=== PATIENT | male | born 1970 ===

== ENCOUNTER 2021-06-18 02:09 | Emergency (ER) | payer SELFPAY ==
[~2021-06-18] VITALS: Ht 185.4 cm; Wt 99.8 kg
--- NOTE | 2021-06-18 02:25 | NUR ---
Dr. Mccann at bedside for MSE.
[2021-06-18] MEDS ORDERED: ONDANSETRON 4 MG/2 ML VIAL ONE (02:36)
[2021-06-18] MEDS ORDERED: ONDANSETRON 4 MG/2 ML VIAL IM ONE (02:45)
[2021-06-18 02:55] LABS: HEMATOCRIT 40.9 % (36.7-47.1); MEAN CORPUSCULAR HEMOGLOBIN 30.7 uug (23.8-33.4); MEAN CORPUSCULAR VOLUME 90.1 fL (73.0-96.2); PLATELET COUNT (AUTO) 311 K/uL (152-348)
[2021-06-18 02:59] LABS: CREATININE 1.1 mg/dL (0.6-1.3); POTASSIUM 3.1 mmol/L (3.5-5.1)
[2021-06-18 03:05] LABS: BILIRUBIN,DIRECT 0.2 mg/dL (0.0-0.2); BILIRUBIN,TOTAL 0.5 mg/dL (0.2-1.0)
[2021-06-18 03:11] LABS: *AMPHETAMINE, URINE POSITIVE (NEGATIVE); *CANNABINOID, URINE NEGATIVE (NEGATIVE); *COCCAINE, URINE NEGATIVE (NEGATIVE); *OPIATE, URINE NEGATIVE (NEGATIVE); *PHENCYCLIDINE SCREEN,URINE NEGATIVE (NEGATIVE)
[2021-06-18] MEDS: MAGNESIUM SULFATE/D5W 100 ML IV SCH ×2 (05:23→05:45)
[2021-06-18] MEDS: POTASSIUM CHLORIDE 50 ML IV SCH ×3 (05:23→06:24)
[2021-06-18] MEDS ORDERED: LORAZEPAM 2 MG/1 ML VIAL ONE ×2 (05:33→07:09)
[2021-06-18] MEDS ORDERED: LORAZEPAM 2 MG/1 ML VIAL IV ONE ×2 (06:15→07:00)
--- NOTE | 2021-06-18 06:27 | NUR ---
Pt out of ER for CT.
--- NOTE | 2021-06-18 06:37 | NUR ---
Pt back to ER from CT, ob scrub tech unable to do head CT due to pt unable to sit still, made aware.
[2021-06-18 06:59] LABS: *BILIRUBIN,URIN NEGATIVE (NEGATIVE); *BLOOD, URINE NEGATIVE (NEGATIVE); *CLARITY,URINE TURBID (CLEAR); *COLOR,URINE YELLOW (YELLOW); *KETONES,URINE NEGATIVE (NEGATIVE); *UROBILINOGEN,URINE 0.2 E.U./dl (NORMAL); LEUKOCYTE ESTERASE ,URINE NEGATIVE (NEGATIVE); NITRITE, URINE NEGATIVE (NEGATIVE); PH,URINE 5.5 (5.0-8.0); UGLUCOSE NEGATIVE (NEGATIVE)
[2021-06-18] MEDS ORDERED: KETAMINE HCL 500 MG/10 ML INJ IV ONE (07:00)
[2021-06-18 07:05] LABS: BACTERIA,URINE NONE SEEN /HPF (NONE SEEN); RBC,URINE NONE SEEN /HPF (0-3); SQUAMOUS EPITHELIAL CELL,UR NONE SEEN /HPF (NONE SEEN); URINE AMORPHOUS URATE MANY /HPF; WBC,URINE 0-3 /HPF (0-3)
--- NOTE | 2021-06-18 07:06 | NUR ---
Report given to Sima Hernandez.
[2021-06-18 07:14] LABS: ACETAMINOPHEN < 2.0 ug/mL (10-30)
[2021-06-18 07:14] LABS: MAGNESIUM 2.5 mg/dL (1.8-2.4); PHOSPHOROUS 3.6 mg/dL (2.5-4.9)
[2021-06-18] MEDS ORDERED: IV 1/2NS 1000 ML 1,000 ML IV ONE ×2 (07:15)
--- NOTE | 2021-06-18 07:20 | NUR ---
Pt out of Er for Ct.
--- NOTE | 2021-06-18 07:21 | NUR ---
No Ketamin adminstered to pt, pt sedated enough for CT Scan. Dr Lujan made aware.
[2021-06-18] MEDS ORDERED: KETAMINE HCL 500 MG/10 ML INJ ONE (07:27)
--- NOTE | 2021-06-18 07:52 | NUR ---
Pt back from CT, Patient is resting comfortably in bed with eyes closed, NAD noted.
--- NOTE | 2021-06-18 08:36 | NUR ---
Patient is resting comfortably in bed with eyes closed, NAD noted.
[2021-06-18] MEDS ORDERED: POTASSIUM CHLORIDE 20 MEQ TAB.PRT.SR PO ONE (10:15)
--- NOTE | 2021-06-18 10:34 | NUR ---
Pt is awake a/o x4, able to walk w/ steady gait.
[2021-06-18] MEDS ORDERED: POTASSIUM CHLORIDE 20 MEQ TAB.PRT.SR ONE (10:53)
--- NOTE | 2021-06-18 11:07 | NUR ---
Patient discharged to home in stable condition. Written and verbal after care instructions given. Patient verbalizes understanding of instructions. Stressed follow up or return to ER for worsening s/s.
[2021-06-18 12:16] VITALS: BP 110/69
== END 2021-06-18 11:10 | disposition home or self-care (01) ==
LOC: ER 02:11
DX: F10.229 Alcohol dependence with intoxication, unspecified (principal); Y90.8 Blood alcohol level of 240 mg/100 ml or more; E87.0 Hyperosmolality and hypernatremia; E87.6 Hypokalemia; R11.10 Vomiting, unspecified; E83.42 Hypomagnesemia; F17.290 Nicotine dependence, other tobacco product, uncomplicated; R94.31 Abnormal electrocardiogram [ECG] [EKG]
CPT/HCPCS: 36415; 70450; 71045; 80048; 80076; 80299; 80307; 80320; 81001; 82140; 83690; 83735; 84100; 84484; 85025; 93005; 96361; 96365 ×2; 96372; 96375; 96376; 99152; 99285; J2060 ×2; J2405; J3475; J3480; J3490 ×2; 70030-TC; A4663; C1758; G0480; G0500; J7030